=== PATIENT | female | born 1955 | race Caucasian/White ===

== ENCOUNTER 2022-08-10 10:29 | Outpatient (CLI) | payer MEDICARE ==
--- NOTE | 2022-08-10 19:57 | DEXA Report ---
PROCEDURE: Dexa Spine and/or Hip INDICATIONS: SCREENING FOR OSTEOPOROSIS TECHNIQUE: Dual energy x-ray absorptiometry (DXA) was performed on a [employer] System. Regions measur ed are the AP Spine, femoral neck, and if needed forearm. COMPARISON: Screening for osteoporosis FINDINGS: Lumbar Spine: Scoliosis. Bone Mineral Density 0.878 g/cm/cm, T score -2.5. Osteoporosis Left Femoral Neck: Bone Mineral Density 0.670 g/cm/cm, T score -2.6. Osteoporosis Left Hip: Bone Mineral Density 0.661 g/cm/cm, T score -2.8. Osteoporosis (T score greater or equal to -1.0: NORMAL) (T score from -1.1 to -2.4: OSTEOPENIA) (T score less than or equal to -2.5 to: OSTEOPOROSIS) Impression: By WHO criteria, this patient has osteoporosis. Patients with diagnosis of osteoporosis or osteopenia should have regular bone mineral density assess ment. For those eligible for Medicare, routine testing is allowed once every 2 years. Testing frequ ency can be increased for patients who have rapidly progressing disease or for those who are receivin g medical therapy to restore bone mass. Reviewed by: Fazal Zurita MD on 08/10/2022 7:56 PM PDT Approved by: Fazal Zurita MD on 08/10/2022 7:56 PM PDT Station ID: [id number]
== END 2022-08-10 10:30 | disposition home or self-care (01) ==
LOC: DI 10:29
PROVIDERS: ATTEND Internal Medicine
DX: Z13.820 Encounter for screening for osteoporosis (principal); M81.0 Age-related osteoporosis without current pathological fracture